=== PATIENT | female | born 1945 | race Caucasian/White ===

== ENCOUNTER 2017-02-03 06:31 | Inpatient (IN) | payer OTHER ==
[2017-02-18] MEDS ORDERED: ALDACTONE25 MG PO (10:38)
[2017-02-18] MEDS ORDERED: REQUIP1 MG PO (10:38)
[2017-02-18] MEDS ORDERED: EFFEXOR XR150 MG PO (10:39)
[2017-02-18] MEDS ORDERED: TRAZODONE HCL100 MG PO (10:39)
[2017-02-18] MEDS ORDERED: VITAMIN D350000 UNIT PO (10:40)
[2017-02-18] MEDS ORDERED: ADVAIR 100-501 EACH IH (10:40)
[2017-02-18] MEDS ORDERED: WELLBUTRIN SR150 MG PO (10:45)
[2017-02-18] MEDS ORDERED: VENTOLIN HFA8 GM IH (10:45)
[2017-02-18] MEDS ORDERED: PERCOCET 10-321 EACH PO (10:45)
[2017-02-18] MEDS ORDERED: LASIX20 MG PO (10:47)
[2017-02-18] MEDS ORDERED: COREG12.5 MG PO (10:47)
[2017-02-18] MEDS ORDERED: PRINIVIL20 MG PO (10:48)
[2017-02-18] MEDS ORDERED: ZYPREXA15 MG PO (10:48)
[2017-02-18] MEDS ORDERED: KLOR-CON-1010 MEQ PO (10:49)
[2017-02-18] MEDS ORDERED: MOBIC7.5 MG PO (10:49)
[2017-02-18] MEDS ORDERED: PRAVACHOL80 MG PO (10:49)
[2017-02-18] MEDS ORDERED: ZANTAC150 MG PO (10:49)
[2017-02-18] MEDS ORDERED: MILK OF MA400 MG/5 M PO (10:50)
[2017-02-18] MEDS ORDERED: ACETAMINOPHEN325 MG PO (10:51)
[2017-02-18] MEDS ORDERED: BISAC-EVAC10 MG RC (10:52)
[2017-02-18] MEDS ORDERED: POLYETHYLENE GL17 GM PO (10:55)
[2017-02-18] MEDS ORDERED: XARELTO10 MG PO (10:56)
[2017-02-18] MEDS ORDERED: VITAMIN C500 M1 PO (10:56)
[2017-02-18] MEDS ORDERED: FERROUS SULFAT325 MG PO (10:56)
== END 2017-02-09 17:00 | DRG 470 ==
LOC: SDC 06:31 → MED 16:46
PROVIDERS: ADMIT Internal Medicine
PROC: 0SR903A Replacement of Right Hip Joint with Ceramic Synthetic Substitute, Uncemented, Open Approach (ICD-10-PCS; principal; 2017-02-03)
PROC: 30233N1 Transfusion of Nonautologous Red Blood Cells into Peripheral Vein, Percutaneous Approach (ICD-10-PCS; 2017-02-05)
DX: M16.11 Unilateral primary osteoarthritis, right hip (principal); D62 Acute posthemorrhagic anemia; D68.9 Coagulation defect, unspecified; E87.1 Hypo-osmolality and hyponatremia; I95.9 Hypotension, unspecified; J44.9 Chronic obstructive pulmonary disease, unspecified; G89.4 Chronic pain syndrome; I10 Essential (primary) hypertension; F31.9 Bipolar disorder, unspecified; Z90.710 Acquired absence of both cervix and uterus; Z90.49 Acquired absence of other specified parts of digestive tract; Z79.899 Other long term (current) drug therapy; Z80.9 Family history of malignant neoplasm, unspecified; Z82.49 Family history of ischemic heart disease and other diseases of the circulatory system; R33.9 Retention of urine, unspecified; Z87.891 Personal history of nicotine dependence; G47.33 Obstructive sleep apnea (adult) (pediatric); Z86.711 Personal history of pulmonary embolism; G25.81 Restless legs syndrome; M19.90 Unspecified osteoarthritis, unspecified site; E66.9 Obesity, unspecified; Z68.30 Body mass index [BMI] 30.0-30.9, adult
CPT/HCPCS: 73501-RT; 73502-RT; 97162-GP; 97166; C1776; J1650; J1885; J2270; J2704; J2765; J7040; J7050; P9021; P9047